=== PATIENT | male | born 1995 | race Caucasian/White ===

== ENCOUNTER 2017-07-13 14:09 | Emergency (ER) | payer OTHER ==
[~2017-07-13] VITALS: Ht 177.8 cm; Wt 69.0 kg
[~2017-07-13 14:09] MED LIST: MMW SS
[2017-07-13 14:44] VITALS: BP 118/61; PULSE 75; RESP 18; TEMP 98.6; O2SAT 99
[2017-07-13] MEDS ORDERED: ONDANSETRON ODT 4 MG TAB PO ONE (15:00)
[2017-07-13 15:02] LABS: BLOOD GAS BASE EXCESS 2.4 mmol/L (-2-2); BLOOD GAS CARBOXYHEMOGLOBIN 20.4 % (0-4); BLOOD GAS HCO3 27 mmol/L (22-26); BLOOD GAS METHEMOGLOBIN 1.4 % (0-2); BLOOD GAS O2 HGB SATURATION 77 % (90-100); BLOOD GAS OXYGEN CONTENT 15.4 Vol % (12.0-20.0); BLOOD GAS PCO2 45 mmHG (38-42); BLOOD GAS PO2 105 mmHG (61-120); BLOOD GAS TOTAL HGB 14.1 G/DL (12.0-16.0); TEMP CORR TO 98.6
[2017-07-13 15:03] LABS: CRITICAL VALUE YES; DRAW SITE RT RADIAL; FIO2 21 %; NUMBER OF ARTERIAL PUNCTURES 1; OXYGEN DEVICE ROOM AIR; STAT YES; ULNAR PULSE PRESENT
[2017-07-13] MEDS ORDERED: ACETAMINOPHEN 325 MG TAB PO ONE (15:15)
[2017-07-13 15:22] VITALS: BP 115/61; PULSE 63; RESP 18; O2SAT 100
--- NOTE | 2017-07-13 15:32 | PD ---
HPI Chief Complaint: Respiratory Symptoms Time Seen by Provider: 14:46 Travel History International Travel<30 days: No Contact w/Intl Traveler<30days: No Traveled to known affect area: No History of Present Illness HPI 22-year-old male arrives by EMS. 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 He believes he exhaust from the pot washer emptied into the bathroom and he was inhaling the smoke for an hour to 2 hours. He became somewhat nauseated with headache on scene. He left the area and after exposure to fresh air return. Upon returning headache resumed as well as nausea. The patient went home and became very nauseated and vomited. He called EMS. He vomited en route to the ER. In the ER he reports a mild generalized headache. He reports persistent nausea in the ER and dry heaved once. He does not smoke or drink alcohol. No loss of consciousness occurred. He has no chest pain or palpitation. He denies shortness of breath. He does not believe any other noxious substance exposure occurred while cleaning today. PFSH Past Medical History Medical History: Denies Significant Hx ADHD: No Autoimmune Disease: No Cancer: No Cardiovascular Problems: No Developmental Delay: No Diabetes: No Diminished Hearing: No Gastrointestinal Disorders: No Genitourinary: No Neurologic: No Psychiatric: No Respiratory: No Immunizations Current: Yes Migraines: No Seizures: No Thyroid Disease: No Ulcer: No Influenza Vaccination: No Past Surgical History Surgical History: No Previous Surgery Abdominal Surgery: Yes (APPENDIX) Appendectomy: Yes Pacemaker: No Other Surgery: No Social History Alcohol Use: No Tobacco Use: No Substance Use: No Allergies-Medications (Allergen,Severity, Reaction): Coded Allergies: No Known Allergies (Unverified , 07/13/17) Reported Meds & Prescriptions Reported Meds & Active Scripts Active Review of Systems Except as stated in HPI: all other systems reviewed are Neg General / Constitutional: No: Fever HENT: Positive: Headaches Physical Exam Narrative GENERAL: Well-nourished well-developed 22-year-old male no acute distress speaking full sentences SKIN: Warm and dry. HEAD: Atraumatic. Normocephalic. EYES: Pupils equal and round. No scleral icterus. No injection or drainage. ENT: No nasal bleeding or discharge. Mucous membranes pink and moist. NECK: Trachea midline. No JVD. CARDIOVASCULAR: Regular rate and rhythm. RESPIRATORY: No accessory muscle use. Clear to auscultation. Breath sounds equal bilaterally. GASTROINTESTINAL: Abdomen soft, non-tender, nondistended. Hepatic and splenic margins not palpable. MUSCULOSKELETAL: Extremities without clubbing, cyanosis, or edema. No obvious deformities. NEUROLOGICAL: Awake and alert. No obvious cranial nerve deficits. Motor grossly within normal limits. Five out of 5 muscle strength in the arms and legs. Normal speech. PSYCHIATRIC: Appropriate mood and affect; insight and judgment normal. Data Data Last Documented VS Vital Signs Date Time Temp Pulse Resp B/P Pulse Ox O2 Delivery O2 Flow Rate FiO2 07/13/17 15:50 16 100 Non-Rebreather 15 07/13/17 15:22 63 115/61 07/13/17 14:44 98.6 Vital signs reviewed Orders Arterial Blood Gas (Abg) (07/13/17 ) Ondansetron Odt (Zofran Odt) (07/13/17 15:00) Acetaminophen (Tylenol) (07/13/17 15:15) Electrocardiogram (07/13/17 ) Basic Metabolic Panel (Bmp) (07/13/17 15:35) Ckmb (Isoenzyme) Profile (07/13/17 15:35) Complete Blood Count With Diff (07/13/17 15:35) Troponin I (07/13/17 15:35) Ecg Monitoring (07/13/17 15:35) Iv Access Insert/Monitor (07/13/17 15:35) Oximetry (07/13/17 15:35) Oxygen Administration (07/13/17 15:35) Sodium Chloride 0.9% Flush (Ns Flush) (07/13/17 15:45) Sodium Chlor 0.9% 1000 Ml Inj (Ns 1000 M (07/13/17 15:45) Labs Laboratory Tests Test 07/13/17 07/13/17 14:55 15:45 Blood Gas Puncture Site RT RADIAL Blood Gas Patient Temperature 98.6 Blood Gas HCO3 27 mmol/L Blood Gas Base Excess 2.4 mmol/L Blood Gas Oxygen Saturation 77 % Arterial Blood pH 7.40 Arterial Blood Partial 45 mmHG Pressure CO2 Arterial Blood Partial 105 mmHG Pressure O2 Arterial Blood Oxygen Content 15.4 Vol % Arterial Blood 20.4 % Carboxyhemoglobin Arterial Blood Methemoglobin 1.4 % Blood Gas Hemoglobin 14.1 G/DL Oxygen Delivery Device ROOM AIR Blood Gas Inspired Oxygen 21 % White Blood Count 12.7 TH/MM3 Red Blood Count 4.89 MIL/MM3 Hemoglobin 14.9 GM/DL Hematocrit 43.1 % Mean Corpuscular Volume 88.2 FL Mean Corpuscular Hemoglobin 30.4 PG Mean Corpuscular Hemoglobin 34.4 % Concent Red Cell Distribution Width 12.2 % Platelet Count 143 TH/MM3 Mean Platelet Volume 8.3 FL Neutrophils (%) (Auto) 86.9 % Lymphocytes (%) (Auto) 11.4 % Monocytes (%) (Auto) 1.3 % Eosinophils (%) (Auto) 0.2 % Basophils (%) (Auto) 0.2 % Neutrophils # (Auto) 11.1 TH/MM3 Lymphocytes # (Auto) 1.4 TH/MM3 Monocytes # (Auto) 0.2 TH/MM3 Eosinophils # (Auto) 0.0 TH/MM3 Basophils # (Auto) 0.0 TH/MM3 CBC Comment DIFF FINAL Differential Comment MDM Medical Decision Making Medical Screen Exam Complete: Yes Emergency Medical Condition: Yes Medical Record Reviewed: Yes Differential Diagnosis Carbon monoxide poisoning, cyanide poisoning, cardiac injury, neurologic injury Narrative Course ABG was obtained the neck reveals a carboxyhemoglobin of 20%. The remainder of the results are 7.4/45/26 with an ABG PO2 of 105. At 3:00 PM a nonrebreather was applied. Patient also received Zofran Tylenol that time. The oncoming provider will monitor the patient reassessed with the plan for discharge assuming the carboxyhemoglobin is normalized and the patient remains asymptomatic. Routine blood work including a creatinine kinase was added. Case discussed with Dr. Clayton 3:50 PM. Juan J Mckeon MD Jul 13, 2017 15:32
[2017-07-13] MEDS ORDERED: SODIUM CHLORIDE 0.9% FLUSH 10 ML FLUSH IVF PRN (15:45)
[2017-07-13] MEDS ORDERED: SODIUM CHLOR 0.9% 1000 ML INJ 1,000 ML IV ONE (15:45)
[2017-07-13 15:50] VITALS: RESP 16; O2SAT 100
[2017-07-13 15:52] LABS: AUTOMATED NEUTROPHIL # 11.1 TH/MM3 (1.8-7.7); BASOPHIL % 0.2 % (0.0-2.0); EOSINOPHIL % 0.2 % (0.0-4.0); HEMATOCRIT 43.1 % (39.0-51.0); HEMO FLAGS DIFF FINAL; LYMPH % 11.4 % (9.0-44.0); LYMPHOCYTE # 1.4 TH/MM3 (1.0-4.8); MEAN CELL VOLUME 88.2 FL (80.0-100.0); MEAN CORPUSCULAR HEMOGLOBIN 30.4 PG (27.0-34.0); MEAN CORPUSCULAR HGB CONC 34.4 % (32.0-36.0); MONO % 1.3 % (0.0-8.0); NEUT % 86.9 % (16.0-70.0); PLATELET COUNT 143 TH/MM3 (150-450); RED BLOOD COUNT 4.89 MIL/MM3 (4.50-5.90); RED CELL DISTRIBUTION WIDTH 12.2 % (11.6-17.2); WHITE BLOOD COUNT 12.7 TH/MM3 (4.0-11.0)
[2017-07-13 16:01] LABS: CHLORIDE 105 MEQ/L (98-107); POTASSIUM 3.6 MEQ/L (3.5-5.1); SODIUM (NA) 140 MEQ/L (136-145)
[2017-07-13 16:04] LABS: ANION GAP 8 MEQ/L (5-15); BICARBONATE 27.4 MEQ/L (21.0-32.0); BLOOD UREA NITROGEN 15 MG/DL (7-18)
[2017-07-13 16:07] LABS: GLOMERULAR FILTRATION RATE 112 ML/MIN (>89)
[2017-07-13 16:10] LABS: CREATINE KINASE 144 U/L (39-308)
[2017-07-13 16:23] LABS: CKMB 1.4 NG/ML (0.5-3.6)
--- NOTE | 2017-07-13 16:42 | PD ---
Physical Exam Date Seen by Provider: Jul 13, 2017 Time Seen by Provider: 16:40 Narrative This 22-year-old male had presented with complaints of feeling lightheaded and dizzy. 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 This is when his symptoms began. He was seen initially by Dr. Mckeon and was found to have a carboxyhemoglobin level of 20. He has been maintained on a nonrebreather and has been stable. He is awake and alert. He will be released Data Data Last Documented VS Vital Signs Date Time Temp Pulse Resp B/P Pulse Ox O2 Delivery O2 Flow Rate FiO2 07/13/17 15:50 16 100 Non-Rebreather 15 07/13/17 15:22 63 115/61 07/13/17 14:44 98.6 Orders Arterial Blood Gas (Abg) (07/13/17 ) Ondansetron Odt (Zofran Odt) (07/13/17 15:00) Acetaminophen (Tylenol) (07/13/17 15:15) Electrocardiogram (07/13/17 ) Basic Metabolic Panel (Bmp) (07/13/17 15:35) Ckmb (Isoenzyme) Profile (07/13/17 15:35) Complete Blood Count With Diff (07/13/17 15:35) Troponin I (07/13/17 15:35) Ecg Monitoring (07/13/17 15:35) Iv Access Insert/Monitor (07/13/17 15:35) Oximetry (07/13/17 15:35) Oxygen Administration (07/13/17 15:35) Sodium Chloride 0.9% Flush (Ns Flush) (07/13/17 15:45) Sodium Chlor 0.9% 1000 Ml Inj (Ns 1000 M (07/13/17 15:45) CKMB (07/13/17 15:45) CKMB% (07/13/17 15:45) Labs Laboratory Tests Test 07/13/17 07/13/17 14:55 15:45 Blood Gas Puncture Site RT RADIAL Blood Gas Patient Temperature 98.6 Blood Gas HCO3 27 mmol/L Blood Gas Base Excess 2.4 mmol/L Blood Gas Oxygen Saturation 77 % Arterial Blood pH 7.40 Arterial Blood Partial 45 mmHG Pressure CO2 Arterial Blood Partial 105 mmHG Pressure O2 Arterial Blood Oxygen Content 15.4 Vol % Arterial Blood 20.4 % Carboxyhemoglobin Arterial Blood Methemoglobin 1.4 % Blood Gas Hemoglobin 14.1 G/DL Oxygen Delivery Device ROOM AIR Blood Gas Inspired Oxygen 21 % White Blood Count 12.7 TH/MM3 Red Blood Count 4.89 MIL/MM3 Hemoglobin 14.9 GM/DL Hematocrit 43.1 % Mean Corpuscular Volume 88.2 FL Mean Corpuscular Hemoglobin 30.4 PG Mean Corpuscular Hemoglobin 34.4 % Concent Red Cell Distribution Width 12.2 % Platelet Count 143 TH/MM3 Mean Platelet Volume 8.3 FL Neutrophils (%) (Auto) 86.9 % Lymphocytes (%) (Auto) 11.4 % Monocytes (%) (Auto) 1.3 % Eosinophils (%) (Auto) 0.2 % Basophils (%) (Auto) 0.2 % Neutrophils # (Auto) 11.1 TH/MM3 Lymphocytes # (Auto) 1.4 TH/MM3 Monocytes # (Auto) 0.2 TH/MM3 Eosinophils # (Auto) 0.0 TH/MM3 Basophils # (Auto) 0.0 TH/MM3 CBC Comment DIFF FINAL Differential Comment Sodium Level 140 MEQ/L Potassium Level 3.6 MEQ/L Chloride Level 105 MEQ/L Carbon Dioxide Level 27.4 MEQ/L Anion Gap 8 MEQ/L Blood Urea Nitrogen 15 MG/DL Creatinine 0.86 MG/DL Estimat Glomerular Filtration 112 ML/MIN Rate Random Glucose 85 MG/DL Calcium Level 9.1 MG/DL Total Creatine Kinase 144 U/L Creatine Kinase MB 1.4 NG/ML Troponin I LESS THAN 0.02 NG/ML MDM Medical Record Reviewed: No Supervised Visit with CARLOS: No Differential Diagnosis Differential includes carbon monoxide toxicity Narrative Course Patient has been on the nonrebreather for 90 minutes. He feels better and is stable for discharge Diagnosis Primary Impression: Carbon monoxide exposure Disposition: 01 DISCHARGE HOME Condition: Stable Sumit Schulz MD Jul 13, 2017 16:42
[2017-07-13 16:48] VITALS: BP 114/60; PULSE 72; RESP 16; O2SAT 100
--- NOTE | 2017-07-14 05:13 | EKG ---
Date Performed: 07/13/2017 Time Performed: 15:31:55 PTAGE: 22 years EKG: Sinus rhythm WITH SINUS ARRHYTHMIA MODERATE INTRAVENTRICULAR CONDUCTION DELAY MODERATE VOLTAGE CRITERIA FOR LVH, CONSIDER NORMAL VARIANT BORDERLINE ECG NO PREVIOUS TRACING DOCTOR: Adan Conte Interpretating Date/Time 07/14/2017 05:11:51
== END 2017-07-13 17:08 | disposition home or self-care (01) ==
LOC: PHED 14:09
DX: T58.8X1A Toxic effect of carbon monoxide from other source, accidental (unintentional), initial encounter (principal); R51 Headache; R11.2 Nausea with vomiting, unspecified; I49.8 Other specified cardiac arrhythmias; Y92.89 Other specified places as the place of occurrence of the external cause
CPT/HCPCS: 36600; 80048; 82550; 82552; 82805; 84484; 85025; 93005; 99285; J7030